=== PATIENT | female | born 1995 | race African-American/Black ===

== ENCOUNTER → 2017-10-18 | Outpatient (REF) | payer OTHER | LOC: M SFHCLERA 14:04 | DX: R30.0 Dysuria (principal) ==

== ENCOUNTER → 2019-07-29 | Outpatient (REF) | payer OTHER, SELFPAY ==
[2019-07-30 10:38] LABS: APPEARANCE, URINE HAZY (CLEAR); COLOR, URINE YELLOW (YELLOW)
[2019-07-30 10:39] LABS: BILIRUBIN, URINE AUTO NEGATIVE (NEGATIVE); BLOOD, URINE BLOOD NEGATIVE (NEGATIVE); GLUCOSE, URINE (UA) AUTO NEGATIVE (NEGATIVE); KETONE, URINE AUTO NEGATIVE (NEGATIVE); LEUKOCYTE ESTERASE, URINE AUTO TRACE (NEGATIVE); NITRITE, URINE AUTO NEGATIVE (NEGATIVE); PROTEIN, URINE AUTO NEGATIVE (NEGATIVE); RBC, URINE AUTO 3 /HPF (0-3); SPECIFIC GRAVITY URINE AUTO 1.016 (1.002-1.035); SQUAMOUS EPITHELIAL CELL UR AU 2 /HPF (0-6); WBC, URINE AUTO 4 /HPF (0-3)
[2019-07-30 10:40] LABS: CALCIUM OXALATE CRYSTALS LARGE; MUCUS, URINE SMALL (NEGATIVE)
== END ==
LOC: M LAB REF 10:30
PROVIDERS: ATTEND Obstetrics & Gynecology
DX: R39.9 Unspecified symptoms and signs involving the genitourinary system (principal)

== ENCOUNTER 2020-01-08 02:12 | Inpatient (IN) | payer BC, OTHER ==
[~2020-01-08] VITALS: Ht 162.6 cm; Wt 79.3 kg
[2020-01-08] VITALS (14 sets, daily range): BP systolic 105–134; BP diastolic 60–99
[2020-01-08] MEDS ORDERED: TUMS500C PO (02:46)
[2020-01-08] MEDS ORDERED: PRENTAB9 PO (02:46)
[2020-01-08] MEDS ORDERED: NON-325T5 PO (02:46)
[2020-01-08] MEDS ORDERED: ZYRTTAB8 PO (02:46)
[2020-01-08] MEDS ORDERED: LR 1,000 ML IV SCH (03:51)
[2020-01-08] MEDS ORDERED: LACTATED RINGER'S 1000 ML IV STA (03:51)
--- NOTE | 2020-01-08 03:51 | HPEPDOC ---
Obstetrical History & Physical General Date of Admission Jan 08, 2020 at 03:08 History of Present Illness Patient is a at 39.3wks by redating 7wk US. C/o ctx since noon 01/07/2020. No LOF or VB. +FM. No headache or visual changes. Chief Complaint: Contractions, term Information Provided By: Patient Care Care: Good Care Dating Final EDC: Jan 12, 2020 Final EDC by: 1st trimester (US) Antepartum Course Height (inches): 64 Pre- weight (lbs.): 143 Admission Weight (lbs.): 172 Change in Weight (lbs.): 29 Past Medical History Past Obstetrical History : Past Obstetrical History: [employer] History: No pertinent history Past Medical History Medical History mild asthma Surgical History: Tooth extraction Family History Significant Family History: No pertinent family hx Family History none Social History Marital Status: Family situation: Spouse/partner home Psychosocial History: No pertinent psych hx * Smoker: non-smoker Alcohol: Denies Drugs: denies Abuse Violence Screening Have you been hit/kicked/slapp: No Have you been sexually assault: No Imunizations Tdap status: current Influenza Status: declined Allergies Coded Allergies: Dust (Verified Allergy, Unknown, 01/08/20) POLLEN (Verified Allergy, Unknown, 01/08/20) Medications Scheduled Acetaminophen (Acetaminophen) 325 Mg Tablet, 1 TAB PO DAILY for pain or fever Calcium Carbonate (Tums) 200 Mg Tab.chew, 2 TAB PO QID for cough and congestion Cetirizine HCl/Pseudoephedrine (Zyrtec-D Tablet) 1 Each Tab.er.12h, 1 TAB PO BID for allergy symptoms No.137/Iron/Folic Acd ( Vitamin Tablet) 1 Each Tablet, 1 TAB PO DAILY Physical Examination Physical Examination GENERAL: Alert and oriented times three. BREAST: . ABDOMEN: Gravid and non-tender to touch. FETUS: Is vertex (VTX) by sterile vaginal examination (SVE). HEART RATE: Regular rate and rhythm. LUNGS: Clear to auscultation (CTA). EXTREMITIES: No edema. Vital Signs/I&O Vital Signs Date Time Temp Pulse Resp B/P (MAP) Pulse Ox O2 Delivery O2 Flow Rate FiO2 01/08/20 02:40 98.1 95 18 134/99 (111) Laboratory Data [facility] Laboratory Tests 2 01/08/20 03:25: Serology Scanned Report Hepatitis B Testing Urine Culture: No Growth Pertinent Laboratoy Data Blood Type: O+ RBC Antibody Screen: Negative HIV: Negative Hepatitis B: Negative Rapid Plasma Reagin: Nonreactive Rubella: Nonreactive Varicella: Immune Chlamydia/Gonorrhea: Negative Group B Streptococcus: Negative Cystic Fibrosis: Negative Glucose Tolerance Test: 50 Anatomy Ultrasound Ultrasound Date: August 27, 2019 Placenta Location: Anterior Normal Anatomy: Yes Placenta Previa: No Estimated Weight (grams): 380 Steroid Therapy Steroid Therapy: No Vaginal Examination Dilation: 5 cm Effacement: 90% Station: 0 Cervical Consistency: Soft Cervical Position: Middle Presentation: Cephalic presentation Assessment Heart Rate (FHR): 120 Variability: Moderate Accelerations: Positive Decelerations: None Tocometer Contractions: Yes Frequency: regular, every 2-5 min. Assessment/Plan Assessment Patient is a at 39.3wks by redating 7wk US. She is being admitted for active labor. I explained that we expect a but there is a possibility of VAVD or CD for the safety of mom or baby. There is a risk of pelvic floor or p erineal trauma or hemorrhage. Plan Admit and orient. Cattyman and consent. Diet: Liquid. Group B Streptococcus (GBS) negative. Labs and intravenous (IV) per unit protocol. Counseled on Pitocin and augmentation of labor (IOL). Lactated Ringers (LR): Bolus 500 mL, then at 125 mL/hr. Anticipate normal spontaneous delivery (). C-S or VAVD as appropriate. Pain mgt as per patient desire. Jud Pedraza MD Jan 08, 2020 03:51
[2020-01-08] MEDS ORDERED: MOM 30ML SUSPENSION UDC PO PRN (04:00)
[2020-01-08] MEDS ORDERED: ONDANSETRON 4MG/2ML VIAL IV SCH (04:00)
[2020-01-08] MEDS ORDERED: PROMETHAZINE INJ 25 MG/ML VIAL (J2550) IV PRN (04:00)
[2020-01-08] MEDS ORDERED: diphenhydrAMINE 25MG CAP PO PRN (04:00)
[2020-01-08] MEDS ORDERED: ACETAMINOPHEN 500 MG TAB PO PRN ×2 (04:00→12:30)
[2020-01-08] MEDS ORDERED: SIMETHICONE 80 MG CHEW TAB PO PRN (04:00)
[2020-01-08] MEDS ORDERED: BUTORPHANOL 2 MG/ML INJ (J0595) IV PRN (04:00)
[2020-01-08] MEDS ORDERED: CALCIUM CARBONATE 500 MG CHEW U/D PO PRN (04:00)
[2020-01-08 04:05] LABS: BASO % 0.2 % (0.0-1.0); EOS # 0.1 10^3/uL (0.0-0.5); EOS % 1.3 % (0.0-3.0); HEMOGLOBIN 10.5 g/dl (12.0-15.5); LYMPH # 1.2 10^3/uL (1.5-5.0); MEAN CORPUSCULAR HEMOGLOBIN 29.7 pg (27.0-33.0); MEAN CORPUSCULAR HGB CONC 32.8 g/dl (32.0-36.5); MEAN CORPUSCULAR VOLUME 90.4 fl (80.0-96.0); MONO # 0.8 10^3/uL (0.0-0.8); NEUTROPHILS # 6.5 10^3/uL (1.5-8.5); NEUTROPHILS % 75.2 % (36.0-66.0); PLATELET COUNT, AUTOMATED 200 10^3/uL (150-450); RED BLOOD COUNT 3.54 10^6/uL (4.00-5.40); WHITE BLOOD COUNT 8.6 10^3/uL (4.0-10.0)
[2020-01-08] MEDS ORDERED: OXYTOCIN 30 UNITS IN 0.9% NaCl 500ML IV BAG (J2590) As Ordered ONE (07:24)
--- NOTE | 2020-01-08 09:00 | IPNPDOC ---
Obstetrical Progress Note Date of Service Jan 08, 2020 Subjective 24yo @ 39+3, O+, GBS-, labor at term Objective Vital Signs Date Time Temp Pulse Resp B/P (MAP) Pulse Ox O2 Delivery O2 Flow Rate FiO2 01/08/20 07:28 98.7 68 18 132/84 (100) Assessment Heart Rate (FHR): 130 Variability: Moderate Accelerations: Positive Decelerations: None Heart Rate Tracing: Category I Tocometer Contractions: Yes (q2-7 min) Strength: palpated as moderate Assessment and Plan Age: 24 : 1 Term: 0 Pre-term: 0 Abortions: 0 Livin Weeks & Days 39+4 Status: Reassuring Group B Streptococcus: Negative Anticipate: Vaginal Delivery Additional Comments lr @125ml/hr, continuous efm x2, monitor for change in status, anticipate need for pitocin augmentation, evaluate fo change as indicated, anticipate vaginal delivery SCOOBY BUENO CNM Jan 08, 2020 09:00
--- NOTE | 2020-01-08 11:13 | IPNPDOC ---
Obstetrical Progress Note Date of Service Jan 08, 2020 Subjective Pt c/o increased pain requesting medication IV Objective Vital Signs Date Time Temp Pulse Resp B/P (MAP) Pulse Ox O2 Delivery O2 Flow Rate FiO2 01/08/20 10:27 98.9 98 18 132/84 (100) Assessment Heart Rate (FHR): 150 Variability: Moderate Accelerations: Positive Decelerations: Variable (with brisk recovery to baseline) Heart Rate Tracing: Category II Tocometer Contractions: Yes Frequency: every 2-5 min. Duration: greater than 60 seconds Strength: palpated as strong Sterile Vaginal Examination Dilation: 9 cm Effacement (%): 100% Station: 0 Cervical Consistency: Soft Cervical Position: Middle Postion/Presentation: Cephalic presentation Assessment and Plan Age: 24 : 1 Term: 0 Pre-term: 0 Abortions: 0 Livin Weeks & Days 39+4 Status: Reassuring Group B Streptococcus: Negative Anticipate: Vaginal Delivery Additional Comments A:24yo @39+4, O+, GBS-, labor at term P:lr @125ml/hr, continuous efm, x2, monitor for change in or maternal status, evaluate as indicated, encourage frequent maternal position changes for comfort, anticipate vaginal delivery SCOOBY BUENO CNM Jan 08, 2020 11:13
--- NOTE | 2020-01-08 12:22 | DNPDOC ---
[facility] Delivery Note Delivery Note DATE OF DELIVERY: [08Jan2020] PREDELIVERY DIAGNOSIS: [39]-[4]/7 weeks' gestation and labor. POST DELIVERY DIAGNOSIS: Delivered. PROCEDURE: [Spontaneous vaginal delivery]. CIGARETTE EXAMINER: EDL [Daisy Bueno] ANESTHESIA: [none]. ESTIMATED BLOOD LOSS: [150] mL. FINDINGS: pound ounce , Score /, nuchal cord times [0]. DELIVERY SUMMARY: Patient is a [24]-year-old [1] now para [1]-[0]-[0]-[1] who was admitted to labor and delivery for [labor] a on [08Jan2020]. Abilio called out with an urge to push and was found to be C/C/+2. Brisk decent was made with strong maternal pushing efforts to in CESAR with a right compound hand over an intact perineum. No nuchal cord was noted after delivery of the head. The right anterior shoulder delivered easily followed by the posterior shoulder and corpus. The male infant was placed immediately skin to skin on the maternal abdomen with a vigorous cry. Pitocin infusion was initiated per protocol. The cord was clamped x 2 after pulsation ceased and cut by the FOB. The placenta delivered spontaneously intact in tita presentation with minimal bleeding and trailing membranes. The cervix was swept for a small clot and a small portion of membrane. The fundus firmed immediately. Examination revealed bilateral hemostatic labial abrasions. The patient was offered approximation of one or both lacerations and declined. Cord blood was drawn form the placenta. Mother and baby entered the recovery phase in stable condition. DAISY BUENO CNM Jan 08, 2020 12:22
[2020-01-08] MEDS ORDERED: OXYTOCIN DRIP 30 UNITS in IV 1 EA IV SCH (12:23)
[2020-01-08] MEDS ORDERED: MEASLES,MUMPS,RUBELLA VACCINE INJ (MMR-II) (90707) SC SCH (12:30)
[2020-01-08] MEDS ORDERED: ACETAMINOPHEN TAB 650MG DOSE (2X325MG) PO PRN (12:30)
[2020-01-08] MEDS ORDERED: DOCUSATE SODIUM 100 MG CAP PO PRN (12:30)
[2020-01-08] MEDS ORDERED: RHOGAM 300 MCG (1500 IU) INJ (J2790) IM SCH (12:30)
[2020-01-08] MEDS ORDERED: DIBUCAINE 1% OINTMENT 30GM TOP PRN (12:30)
[2020-01-08] MEDS ORDERED: IBUPROFEN 600MG TAB PO PRN (12:30)
[2020-01-09 06:00] VITALS: BP 125/82
[2020-01-09] MEDS: IBUPROFEN 800 MG TAB PO PRN (08:02)
[2020-01-09] MEDS: PRENATAL VITAMINS CHEWABLE TABLET PO SCH (08:02)
[2020-01-09 18:00] VITALS: BP 126/89
[2020-01-10 06:00] VITALS: BP 136/92
[2020-01-10] MEDS: PRENATAL VITAMINS CHEWABLE TABLET PO SCH (08:32)
[2020-01-10] MEDS: IBUPROFEN 800 MG TAB PO PRN (08:32)
--- NOTE | 2020-01-22 10:47 | IPN ---
DATE: 12/09/2019 SUBJECTIVE: This patient requested circumcision of her male infant. After discussing the risks and benefits of the circumcision, the medical and non-medical indications, the penile block and aftercare, expressed an understanding of penile block and aftercare, signed the consent form, all questions were answered; a 20 minute discussion. We await clearance by the tank bottom assembler. GURMEET
--- NOTE | 2020-01-22 10:48 | IPN ---
DATE: 01/09/2020 This lady is a 24-year-old 1, now para 1, admitted at 39 and 3 weeks of gestation with contractions. Had a spontaneous vaginal delivery, male , 7 pounds 9 ounces, scores of 9 and 9 at 1 and 5 minutes, respectively. She had no anesthesia, natural childbirth, had a couple of minor labial abrasions which were hemostatic. On her first day, we discussed phlebitis, cystitis, mastitis, endometritis, and cellulitis, diet, exercise, pain management, perineal, breast, and wound care. Her blood pressure this morning is 125/82, respirations 18, pulse 112, temperature is 98.6. Her admitting hemoglobin 10.5, hematocrit 32.0, and platelets are 200. In summary, we have a term gestation who delivered a live male . Plans are for circumcision today, discharge tomorrow. Six-week checkup at [facility] ([facility]). Medications dispensed at [facility]. All questions were answered. 20-minute discussion. GURMEET
== END 2020-01-10 11:00 | disposition home or self-care (01) | DRG 560 ==
LOC: M LDO 02:12 → M LDI 03:08 → M OBS 15:04
PROVIDERS: ADMIT Obstetrics & Gynecology; ATTEND Registered Nurse
PROC: 10E0XZZ Delivery of Products of Conception, External Approach (ICD-10-PCS; principal; 2020-01-08)
DX: O32.6XX0 Maternal care for compound presentation, not applicable or unspecified (principal); Z37.0 Single live birth; Z3A.39 39 weeks gestation of pregnancy